=== PATIENT | male | born 1955 | race Caucasian/White ===

== ENCOUNTER → 2018-05-11 10:42 | Outpatient (CLI) | payer OTHER, SELFPAY ==
[2018-05-11 12:26] LABS: Add Manual Diff / Slide Review NO; Alanine Aminotransferase 35 IU/L (21-72); Albumin 4.1 g/dL (3.5-5.0); Albumin Globulin Ratio 1.5 (1.0-2.8); Alkaline Phosphatase 77 U/L (38-126); Aspartate Aminotransferase 33 IU/L (17-59); BUN Creatinine Ratio 21.4 (6-22); Basophils Percent Auto 0.5 % (0-2); Bilirubin Total 0.6 mg/dL (0.2-1.3); Blood Urea Nitrogen 15 mg/dL (9-20); Calcium 9.7 mg/dL (8.4-10.2); Carbon Dioxide 33 mmol/L (22-32); Chloride 100 mmol/L (98-107); Cholesterol 168 mg/dL (140-199); Eosinophils Percent Auto 2.3 % (2-4); Estimated Glomerular Filt Rate > 60.0 mL/min (>60); Globulin 2.7 g/dL (1.7-4.1); Glucose 96 mg/dL (80-110); HDL Cholesterol 84 mg/dL (40-60); HEMOLYSIS < 15 (0-50); Hematocrit 41.1 % (41-53); Hemoglobin 14.3 g/dL (13.5-17.5); LDL Cholesterol Calculated 68 mg/dL (<100); Lymphocytes Percent Auto 17.5 % (25-40); Mean Corpuscular HGB Conc 34.8 % (30-36); Mean Corpuscular Hemoglobin 33.2 PG (26-34); Mean Corpuscular Volume 95.4 fL (80-100); Monocytes Percent Auto 10.1 % (3-14); Neutrophils Absolute Auto 2800 /uL (3000-5900); Neutrophils Percent Auto 69.6 % (50-75); Platelet Count 276 X10^3/uL (150-400); Red Blood Cell Count 4.31 X10^6/uL (4.5-5.9); Red Cell Distribution Width 12.5 % (11.6-14.8); Sodium 139 mmol/L (137-145); Total Protein 6.8 g/dL (6.3-8.2); Triglycerides 79 mg/dL (35-150)
[2018-05-11 15:40] LABS: Hep C Virus Ab w/Reflex Quant NEGATIVE s/c (NEGATIVE)
[2018-05-12 05:10] LABS: Hemoglobin A1C% w Est Avg Glu 5.3 % (4.0-6.0)
== END ==
PROVIDERS: PCP Internal Medicine; Visit Provider Internal Medicine
DX: I10 Essential (primary) hypertension (principal); M15.0 Primary generalized (osteo)arthritis; C43.9 Malignant melanoma of skin, unspecified; R73.01 Impaired fasting glucose
CPT/HCPCS: 36415; 80053; 80061; 83036; 85025; 86803

== ENCOUNTER → 2018-06-28 15:40 | Outpatient (CLI) | payer OTHER, SELFPAY | PROVIDERS: PCP Internal Medicine; Visit Provider Orthopaedic Surgery | DX: Z01.818 Encounter for other preprocedural examination (principal) | CPT/HCPCS: 93005 ==

== ENCOUNTER 2018-07-15 06:10 | Inpatient (IN) | payer OTHER, SELFPAY ==
[2018-06-29 12:41] VITALS: BMI 28.6
[2018-07-15] VITALS (13 sets, daily range): BP systolic 114–145; BP diastolic 67–96; PULSE 59–83; RESP 11–20; TEMP 36.2–36.7; O2SAT 95–99; BMI 28.6
--- NOTE | 2018-07-15 | DI.RAD.S_ITS ---
PROCEDURE: XR HIP W PEL IF DONE RT 2V INDICATIONS: INTEROPERATIVE RIGHT HIP TECHNIQUE: AP pelvis with lateral view(s) of the right hip(s). COMPARISON: [facility], , XR HIP W PEL IF DONE RT 2V, 07/15/2018, 8:47. FINDINGS: Bones: No fractures or dislocations. Expected postoperative appearance status post placement of right hip arthroplasty Pelvic ring appears intact. No suspicious bony lesions. Mild to moderate left hip joint degeneration Soft tissues: Overlying postoperative changes. IMPRESSION: Expected postoperative alignment of right hip arthroplasty Dictated by: Anthony Pineda M.D. on 07/15/2018 at 13:29 Approved by: Anthony Pineda M.D. on 07/15/2018 at 13:30
--- NOTE | 2018-07-15 06:00 | DI.RAD.S_ITS ---
PROCEDURE: XR HIP W PEL IF DONE RT 2V INDICATIONS: prosthesis placement TECHNIQUE: 2 view(s) of the hip acquired. COMPARISON: None. FINDINGS: Bones: Intraoperative image of right hip arthroplasty, with hardware components in expected positions. The hip joint appears congruent. The visualized bony structures appear intact. Soft tissues: Overlying postoperative changes are noted. No suspicious soft tissue densities. IMPRESSION: Expected postsurgical change for right hip arthroplasty. Dictated by: Kaitlynn Valle MD, PhD on 07/15/2018 at 15:21 Approved by: Kaitlynn Valle MD, PhD on 07/15/2018 at 15:22
[2018-07-15] MEDS: LACTATED RINGERS 1,000 ML 42 ML IV (07:00)
[2018-07-15] MEDS: VANCOMYCIN 1,000 MG/200 ML FROZ.PIGGY 200 MG IV (07:07)
[2018-07-15] MEDS: PREGABALIN 75 MG CAPSULE PO (07:10)
[2018-07-15] MEDS: CELECOXIB 200 MG CAPSULE PO (07:10)
[2018-07-15] MEDS: ACETAMINOPHEN 325 MG TABLET 975 MG PO ×3 (07:12→20:20)
[2018-07-15] MEDS: CEFAZOLIN 2 GM/100 ML FROZ.PIGGY IV ×3 (07:50→20:21)
--- NOTE | 2018-07-15 07:53 | PM.PREOP ---
Pre-operative Note Interval Note Pre-op Check: Yes History & Physical Reviewed by Physician and Yes Exam Performed Changes: No
--- NOTE | 2018-07-15 07:59 | P.OP_ITS ---
Operative Date/Time/Diagnoses Date of procedure: 07/15/18 Time of procedure: 08:04 Pre-op diagnosis: right hip OA Post-op diagnosis: same Procedure & Clinicians Procedure: right total hip arthroplasty Same procedure as scheduled: Yes Indications: The patient has had progressively worsening right hip pain with radiographic changes consistent with arthritis. Non-operative management has failed and the patient has requested total hip replacement. The risks, benefits and alternatives to surgery were discussed with the patient prior to proceeding. Risks discussed included, but were not limited to, failure to relieve pain, leg length discrepancy, dislocation, stiffness, infection, nerve damage, deep venous thrombosis, pulmonary embolism, stroke, coma, heart attack, permanent paralysis and , as well as the potential need for eventual revision of the prosthetic. Surgeon: Jessica Anaya Advertising Supervisor: Stefani Santana Anesthesia Type: General and Spinal Operative Notes Findings: severe right hip arthritis good stability Closure Type: primary Specimen(s): none sent Implants & Drains: anaya and nephew R3 56, anthology 6 SO, +0 by 36 Applied: catheter Estimated Blood Loss (mL): 300 Blood products transfused: none Procedure in detail: The patient was brought to the operating room. Patient was carefully positioned in the supine position. Time-out was performed and antibiotics were given. Anesthesia was induced. She was positioned in the on the table in order to allow hyperextension of the hip. Bilateral lower extremities were prepped and draped in a standard sterile fashion. An anterior right hip incision was made 1 fingerbreadth lateral to the anterior superior iliac spine and extended distally towards the greater trochanter. Dissection was carried out through skin and subcutaneous tissues. The skin and subcutaneous tissues were carefully injected with Lidocaine with epi. Superficial hemostasis was achieved. The fascia over the tensor fascia susanne was defined and incised with a knife. Two Allis clamps were used to grasp the fascia. Tensor fascia susanne was retracted laterally. A gelpi retractor was placed. Dissection was carried out down along the neck. The circumflex vessels were carefully identified and cauterized with the Aqua Mantis. There was good visualization of the femoral neck. A Cobra was placed superior to the neck and the gluteus fibers were carefully stripped from that superior aspect of the capsule. A 2nd retractor was placed along the inferior aspect of the neck. The rectus insertion along the capsule was partially released. A 3rd retractor that was then gently placed over the rim of the acetabulum under the rectus. Capsule was carefully incised and released from the intertrochanteric line circumferentially superior to the mid sagittal line and inferiorly to the mid sagittal line until the lesser trochanter was palpable. A tag stitch was placed both in the superior and inferior limb of the capsular insertion. Along the acetabulum capsule was also released up to the mid sagittal 12:00 position. A portion of the labrum was resected. A saw was used to perform an osteotomy at the level of the intertrochanteric line and the junction of the superior femoral neck leaving approximately 1 finger breath of residual inferior neck above the lesser trochanter. A 2nd cut was made along the femoral neck at the base of the head and a napkin ring of neck was removed. Corkscrew was placed in the femoral head and the head was removed without difficulty. Retractors were then repositioned around the acetabulum. Residual labrum was resected and additional osteophytes were removed. A reamer that was 4 mm below the templated size was placed by hand in the acetabulum and it was reamed to centralize the acetabulum. It was then reamed up to 2 under the templated size and fluoroscopy was brought in to confirm the position of the reaming and depth of reaming. I reamed 1 under the anticipated size and touched the rim with line to line reaming. A trial cup was placed and noted that it was appropriately sized and fluoroscopy confirmed position and depth. The component was open and inserted without difficulty fluoroscopic imaging was used to confirm that the cup had been adequately seated and was well positioned. Neutral poly trial liner was placed. The cup was tested and noted to be stable. Attention was then directed to the femur. The femur was gently hyperextended additional capsular release was performed as needed in order to allow adequate visualization of the proximal femur with elevation of the femur. Patient was placed in a hyperextended slightly abducted position with maximum external rotation. Box osteotome was used to check for any residual neck as well as sclerotic bone along the trochanter. [place] pepper was placed in the femur. Additional broaching was performed. Canal finder was used to determine the alignment of the canal and position. Size 1 broach was placed. The canal was then appropriately broached up to the templated size as long as there was adequate stability of the broach and serial advancement of the broach without excessive impingement. Specific attention was directed at avoiding varus attempting to direct the distal aspect of the broach more anteriorly and avoiding excessive anteversion. Trial reduction showed acceptable range of motion, good stability, no posterior impingement, sikhism of leg length and appropriate lateral shuck. I also hyperflexed the hip and checked that there was no impingement anteriorly and there was good stability with flexion, abduction and internal rotation. Final neutral poly was placed without difficulty. Marcaine and Exparel were injected. The stem was placed without difficulty. Repeat trial reduction and x -ray showed acceptable overall position, length, and no evidence of the femoral fracture. Final head was placed. Wound was meticulously irrigated with normal saline. The hip was reduced and additional Exparel and Marcaine were injected. The capsule was closed with interrupted nonabsorbable sutures. The fascia of the tensor was closed with interrupted and running Vicryl. No drain was placed. Any tensor fascia susanne muscle that appeared to be contused or injured which was a minimal amount was carefully resected. Capsule around the tensor was injected with Exparel and Marcaine. The skin was closed with barbed stitches for the subcutaneous tissue and skin. We also used surgical glue. The wound was dressed sterilely. Brief Betadine soak was also used and was meticulously irrigated with normal saline. Patient was transferred to recovery room in satisfactory condition. Complications: none Condition: stable Disposition: Acute Care Plan for aftercare: The patient will be maintained on a standard total hip replacement protocol with weight bearing as tolerated and anterior hip precautions. The patient will receive Aspirin and sequential compression devices for DVT prophylaxis. The patient will be discharged home when safe for the home environment.
[2018-07-15] MEDS: LIDOCAINE 1% W/EPI INJ 20 ML INJ (08:30)
--- NOTE | 2018-07-15 08:50 | SUR.OPER ---
Supine, head on pillow, torso on pink pad positioner. Iliac crest at flex of foot end of table. Gel roll under operative hip. Both arms secured on arm boards <90 degrees abduction.
[2018-07-15] MEDS: BUPIVACAINE 0.25% W/ EPI VIAL 50 ML INJ (09:02)
[2018-07-15] MEDS: BUPIVACAINE LIPOSOME 266 MG/20 ML VIAL INJ (09:03)
[2018-07-15] MEDS: LACTATED RINGERS 1,000 ML 125 ML IV (14:27)
--- NOTE | 2018-07-15 14:42 | PC.NURSE ---
Pt to floor after anterior right hip replacement on mckeon path. Denies pain at this time. Aquacel dressing CDI. Has not yet voided. Given urinal to use when able. Spouse present. O2 sats at 96% on RA.
--- NOTE | 2018-07-15 16:27 | PT.IIE ---
Current Diagnoses Unilateral primary osteoarthritis, right hip (07/15/18) Trochanteric bursitis, right hip (07/15/18) Surgery Performed Operation Date: 07/15/18 07:45 Actual Procedures p Total Hip Arthroplasty/Anterior Approach(Right) - Jessica Tenorio MD Surgical History (Last Updated 06/29/18 @ 13:18 by Estee Aponte, RN) H/O vasectomy (Acute) History of lumpectomy of left breast (Acute) Hx of meniscectomy of right knee (Acute) S/P tonsillectomy and adenoidectomy (Acute) Medical History (Last Updated 06/29/18 @ 13:18 by Estee Aponte RN) Aspiration pneumonia (Acute) GERD (gastroesophageal reflux disease) (Acute) NULATO (hard of hearing) (Acute) HTN (hypertension) (Acute) Hiatal hernia (Acute) Hypercholesterolemia (Acute) Melanoma (Acute) Osteoarthritis (Acute) Seasonal allergies (Acute) TIA (transient ischemic attack) (Acute) Physical Therapy Inpatient Evaluation/Re-Eval M1 PT/OT-IP Prior Functional Status Start: 07/15/18 17:11 Freq: NEEDED Status: Active Protocol: Document 07/15/18 16:27 DLM (Rec: 07/15/18 17:23 DLM [id number]) Medical Review Prior Functional Status Medical History Reviewed Yes Diet/Fluid Consistency Regular Communication WNL Mobility and Gait Independent without device, hip pain was making him limp and lean on furniture Activities of Daily Living and IADL's Independent Prior Functional Level (Other details) drives Social History Household Members spouse Living Arrangements House Number of Floors (Floors) One Floor Number of Stairs To Enter/Railing? 0 CHRISTIANO, has one step down into bedroom Home Equipment Front Wheel Walker Raised Toilet Seat w/Armrests Shower Seat without Backrest Additional Social History Comment has borrowed equipment from a friend who had hip surgery, attended out-pt PT before sx, his Son is a physical therapist M2 PT-IP Current Condition Start: 07/15/18 17:11 Freq: NEEDED Status: Active Protocol: Document 07/15/18 16:27 DLM (Rec: 07/15/18 17:23 DLM [id number]) Physical Therapy Current Condition Current Condition Evaluation Date 07/15/18 Treatment Diagnosis right TESSY, anterior approach, impaired gait Onset Date 07/15/18 Precautions Anterior Hip Precautions No Hip Extension No Hip External Rotation Weight Bearing Status Weight Bearing Status Weight Bear as Tolerated M3 PT-IP Subjective Start: 07/15/18 17:11 Freq: NEEDED Status: Active Protocol: Document 07/15/18 16:27 DLM (Rec: 07/15/18 17:23 DL [id number]) Subjective Physical Therapy Visit Type Type Initial Evaluation Visit Start Time 15:50 Visit Stop Time 16:27 Total Visit Minutes 37 Number of GIMP TACKER Visits 0 Physical Therapy Visit Comments Patient Comments He is ready to get up. They have to catch a ferry to get home tomorrow. His will be able to help him at home as needed. Patient Goals discharge home tomorrow Therapy Pain Assessment Pain When Pain Assessed At Rest Pain Present Pain Present Pain Reported Location Right Hip Intensity 2 Scale Used Numeric (1 - 10) Description Aching Pain Management Techniques Apply Cold M4 PT-IP Mobility and Gait Start: 07/15/18 17:11 Freq: NEEDED Status: Active Protocol: Document 07/15/18 16:27 DLM (Rec: 07/15/18 17:23 DL [id number]) PT-Bed Mobility Assessment Supine to Sit Supine to Sit Standby Assistance Head of Bed Elevated Scooting Scooting to Edge of Bed Standby Assistance PT-Transfer Assessment Sit to and From Stand Sit to and from Stand Standby Assistance Equipment Transfer Assistive Device Gait Belt Front Wheeled Walker Transfers Transfer Destination Chair Transfer Technique Stand Step Pivot Transfer Ability Level of Assist Contact Guard Assistance Use of Upper Extremities Gait Assessment Gait Gait Assistance Required: Contact Guard Assist Distance (Feet) 180 Able to Maintain Weight Bearing Status Yes During Gait Assistive Devices Assistive Device Gait Belt Front Wheeled Walker Gait Deviations General Gait Pattern Antalgic Flexed Trunk Factors Limiting Gait Function Factors Limiting Gait Function Decreased Strength Pain PT-Balance Assessment Sitting Balance and Reactions Static Sitting Balance Ability Normal Dynamic Sitting Balance Ability Normal Standing Balance and Reactions Static Standing Balance Ability Good Dynamic Standing Balance Ability Good Device Used FWW M5 PT-IP Objective Assessments Start: 07/15/18 17:11 Freq: NEEDED Status: Active Protocol: Document 07/15/18 16:27 DLM (Rec: 07/15/18 17:23 DL [id number]) Orientation Orientation/Cognition Level of Alertness Alert Orientation Name Age Birthday Month Date Year Day of Week Place Situation Language Function Ability No Deficits Noted Safety Awareness Understands Safety Issues Memory Description No Deficits Noted Gross Range of Motion Upper Extremity ROM Assessment Within Functional Limits Lower Extremity ROM Assessment Right Impaired Impairments hip precautions post-op on right Strength Upper Extremity Strength Assessment Within Functional Limits Lower Extremity Strength Assessment Right Impaired Comments Strength Comments weakness and pain right LE post-op, moving LE actively, difficulty lifting LE off bed to move functionally Coordination Assessment Gross Coordination Gross Coordination WNL Sensation Assessment Sensation Gross Sensation WNL Muscle Tone Muscle Tone WNL Yes M6 PT-IP Treatment Start: 07/15/18 17:11 Freq: NEEDED Status: Active Protocol: Document 07/15/18 16:27 DLM (Rec: 07/15/18 17:23 DLM [id number]) Physical Therapy Treatment Exercises Exercises Ankle Pumps Gluteal Sets Education Education Provided Precautions Weight Bearing Status Post-Op Packet Safety Other Treatments Other Treatment Performed his participate in all education and training this visit M7 PT-IP Assessment and Plan Start: 07/15/18 17:11 Freq: NEEDED Status: Active Protocol: Document 07/15/18 16:27 DLM (Rec: 07/15/18 17:23 DLM [id number]) PT Summary Assessment and Plan Potential Rehabilitation Potential Excellent Status of Condition at Evaluation Evolving Summary Impairments Pain ROM Strength Balance Bed Mobility Transfers Gait Activity Tolerance Assessment Summary He tolerated activity well this visit on day of surgery. Noted he feels hot and sweaty but he has no complaints. Pt ambulated in the peacock and sat up in recliner. His is present and very supportive. The are motivated to discharge tomorrow. He attempted to urinate this visit but was unable even in standing. Nursing is aware. Will plan for discharge home with his to assist if he continues to progress well. Goals Bed Mobility Goal Independent Transfer Goal Independent Front Wheeled Walker Gait Goal Independent Front Wheel Walker Gait Distance 200 ft Other Goals up and down one step/curb with fWW and SBA Days to Meet Goals 2 Frequency of Treatment Frequency Of Treatment Twice a Day Treatment Plan Physical Therapy Treatment Plan Bed Mobility Training Transfer Training Gait Training Therapeutic Exercise Balance Retraining Post Op Education Discharge Planning Hot or Cold Pack Other Recommendations and Next Treatment prepare for possible discharge Focus tomorrow morning Recommendations To Nursing Amount of Assist Needed 1 Person Assist Discharge Recommendations PT Discharge Recommendations Home with Assistance Outpatient PT
[2018-07-15] MEDS: SODIUM CHLORIDE 0.9% 1,000 ML 100 ML IV (16:46)
[2018-07-15] MEDS: LOVASTATIN 20 MG TABLET PO (16:46)
[2018-07-15] MEDS: INFLUENZA VACCINE 0.5 ML SYRINGE IM (16:47)
--- NOTE | 2018-07-15 19:48 | PC.NURSE ---
SHIFT NOTE Ox3, pleasant and cooperative. R hip aquacel dressing CDI. some numbness to buttock area but otherwise distal CMS intact. 1P mins assist and FWW for ambulation. pt with trouble getting urination to start, MD and anesthesiologist aware and states due to recent epidural. pt very reluctant to have straight cath done, wanting to attempt to urinate on his own but remained unsuccessful. obtained 800ml of urine via stright cath at 1845. c/o itching to back area, no rash noted. denies pain, nausea, or vomiting.
[2018-07-15] MEDS: ASPIRIN EC 81 MG TABLET PO (20:19)
[2018-07-15] MEDS: diphenhydrAMINE 50 MG/ML VIAL 25 MG IV (20:23)
[2018-07-16 00:10] VITALS: BP 113/72; PULSE 64; RESP 16; TEMP 36.7; O2SAT 98
[2018-07-16] MEDS: SODIUM CHLORIDE 0.9% 1,000 ML 100 ML IV (03:49)
[2018-07-16] MEDS: CEFAZOLIN 2 GM/100 ML FROZ.PIGGY IV (03:49)
[2018-07-16 05:03] VITALS: BP 118/71; PULSE 60; RESP 16; TEMP 36.7; O2SAT 99
[2018-07-16 05:10] LABS: Hematocrit 32.9 % (41-53); Hemoglobin 11.5 g/dL (13.5-17.5)
--- NOTE | 2018-07-16 08:07 | P.DS_ITS ---
History of Present Illness Date Patient Seen: 07/16/18 Time Patient Seen: 08:07 Chief complaint: total hip arthroplasty [id number] Narrative: Patient admitted for right total hip arthroplasty anterior approach with Dr. Tenorio Discharge Providers Date of admission: 07/15/18 06:10 Primary care physician: Alvarez Deleon MD Consults: 07/15/18 13:38 Consult to Discharge Planning Routine Comment: Consult to Physical Therapy Evaluate & Treat Comment: Physician Instructions: post op TESSY protocol Consult to Respiratory Therapy Evaluate & Treat Comment: Physician Instructions: Evaluate and treat 07/15/18 14:20 Consult to Photogravure Press Operator Routine Comment: 07/15/18 15:30 Consult to Respiratory Therapy Evaluate & Treat Comment: Physician Instructions: Evaluate and treat Discharge provider: Scarlett Ramirez PA-C Discharge Date: 07/16/18 Summary Discharge Diagnosis: s/p total hip arthroplasty Hospital Course: Patient was admitted for right total hip arthroplasty with Dr. Tenorio, and he consented to procedure. Hospital course was unremarkable. On postop day 1. Patient was feeling well and ready to go home. Patient had been up with physical therapy and has outpatient PT scheduled at [facility]. He was eating and voiding without difficulty or assistance. Pain was well controlled. He has his medications at home already. Status at Discharge Functional status at discharge: uses cane/walker Exam Vital Signs (past 8 hours): - 07/16/18 00:10 07/16/18 05:03 Temperature 98.0 F 98.1 F Pulse Rate 64 60 Respiratory Rate 16 16 Blood Pressure 113/72 118/71 Pulse Oximetry 98 99 Oxygen Delivery Method Room Air Oxygen Flow Rate 0 Narrative Exam Narrative: Patient sitting in bedside chair in no acute distress. He is alert and oriented x3. Dressing on right hip is CDI. Calves are soft, compressible, nontender bilaterally. He is able to actively dorsiflex and plantar flex. Pain is well controlled. Denies chest pain or shortness of breath. Objective Labs Result Diagrams: 07/16/18 04:49 Labs: Laboratory Results - last 24 hr 07/16/18 04:49 Hgb 11.5 L Hct 32.9 L Discharge Plan Discharge Plan Patient Disposition: Home Discharge comment: DC home today after AM PT Discharge Med Rec/Prescriptions Prescriptions: New acetaminophen 325 mg Tablet 975 mg PO TID Qty: 14 RF: 0 oxycodone 5 mg Tablet 5 mg PO Q4HR Qty: 10 RF: 0 Continue celecoxib [Celebrex] 200 mg Capsule 200 mg PO DAILY RF: 0 ibuprofen 200 mg Capsule 200 mg PO DAILY PRN (Reason: pain) RF: 0 amlodipine 10 mg Tablet 10 mg PO DAILY RF: 0 pantoprazole 40 mg Tablet,Delayed Release (Dr/Ec) 40 mg PO DAILY RF: 0 hydrochlorothiazide 25 mg Tablet 25 mg PO DAILY RF: 0 lovastatin 20 mg Tablet 20 mg PO QPM RF: 0 Changed aspirin 81 mg Tablet,Delayed Release (Dr/Ec) 81 mg PO BID Qty: 0 RF: 0 Follow up/Referrals: Alvarez Deleon MD [Primary Care Provider] - (please follow up with dr deleon [phone] ) Jessica Tenorio MD [Physician] - (follow up in 5-7 days ) Provider Discharge Instructions Diet: Diet as Tolerated Activity: Anterior hip precautions Cold/Heat Therapy: as needed Skin/Wound/Dressing Care Dressing: Keep in place for 10-14 days Visit Report/Discharge Packet Instructions: DI for Hip Replacement Visit Report Forms: Stroke Signs & Symptoms Discharge Data Primary Care Provider: Alvarez Deleon Attending Provider: Jessica Tenorio Admit Date/Time: 07/15/18 06:10
[2018-07-16 08:15] VITALS: BP 118/69; PULSE 66; RESP 18; TEMP 36.7; O2SAT 100
--- NOTE | 2018-07-16 09:43 | PT.IPTN ---
Current Diagnoses Unilateral primary osteoarthritis, right hip (07/15/18) Trochanteric bursitis, right hip (07/15/18) Surgery Performed Operation Date: 07/15/18 07:45 Actual Procedures p Total Hip Arthroplasty/Anterior Approach(Right) - Jessica Tenorio MD Physical Therapy Treatment Note M2 PT-IP Current Condition Start: 07/15/18 17:11 Freq: NEEDED Status: Discharge Protocol: Document 07/15/18 16:27 DLM (Rec: 07/15/18 17:23 DLM [id number]) Physical Therapy Current Condition Current Condition Evaluation Date 07/15/18 Treatment Diagnosis right TESSY, anterior approach, impaired gait Onset Date 07/15/18 Precautions Anterior Hip Precautions No Hip Extension No Hip External Rotation Weight Bearing Status Weight Bearing Status Weight Bear as Tolerated M3 PT-IP Subjective Start: 07/15/18 17:11 Freq: NEEDED Status: Discharge Protocol: Document 07/16/18 09:43 DLM (Rec: 07/16/18 12:35 DLM [id number]) Subjective Physical Therapy Visit Type Type Treatment Note Visit Start Time 09:00 Visit Stop Time 09:43 Total Visit Minutes 43 Number of BRUSH OPERATOR Visits 0 Physical Therapy Visit Comments Patient Comments He feels like he can go home today Patient Goals discharge home with his Therapy Pain Assessment Pain When Pain Assessed At Rest Pain Present Pain Present Pain Reported Location Right Hip Intensity 2 Scale Used Numeric (1 - 10) Description Aching Pain Management Techniques Apply Cold Re-positioning M4 PT-IP Mobility and Gait Start: 07/15/18 17:11 Freq: NEEDED Status: Discharge Protocol: Document 07/16/18 09:43 DLM (Rec: 07/16/18 12:35 DLM [id number]) PT-Bed Mobility Assessment Supine to Sit Supine to Sit Standby Assistance Sit to Supine Sit to Supine Standby Assistance Scooting Scooting to Edge of Bed Independent PT-Transfer Assessment Sit to and From Stand Sit to and from Stand Standby Assistance Equipment Transfer Assistive Device Front Wheeled Walker Transfers Transfer Destination Chair Transfer Technique Stand Step Pivot Transfer Ability Level of Assist Standby Assistance Use of Upper Extremities Comments Mobility Comments verbal cues for technique and how to manage his pain and limited right hip ROM Gait Assessment Gait Gait Assistance Required: Standby Assistance Distance (Feet) 250 Able to Maintain Weight Bearing Status Yes During Gait Assistive Devices Assistive Device Front Wheeled Walker Gait Deviations General Gait Pattern Antalgic Factors Limiting Gait Function Factors Limiting Gait Function Decreased Activity Tolerance Decreased Strength Pain Stair Climbing Assessment Evaluation Level of Assist On Stairs Standby Assistance Devices Stair Climbing Assistive Devices Front Wheel Walker Technique/Endurance Stair Climbing Direction Ascend and Descend Stair Climbing Technique Step to Step Number of Steps Climbed 1 Query Text: Stair Climbing Set # Repetitions (reps) 2 Comments Stair Climbing Comments curb step used to simulate his one step at home M5 PT-IP Objective Assessments Start: 07/15/18 17:11 Freq: NEEDED Status: Discharge Protocol: Document 07/15/18 16:27 DLM (Rec: 07/15/18 17:23 DLM [id number]) Orientation Orientation/Cognition Level of Alertness Alert Orientation Name Age Birthday Month Date Year Day of Week Place Situation Language Function Ability No Deficits Noted Safety Awareness Understands Safety Issues Memory Description No Deficits Noted Gross Range of Motion Upper Extremity ROM Assessment Within Functional Limits Lower Extremity ROM Assessment Right Impaired Impairments hip precautions post-op on right Strength Upper Extremity Strength Assessment Within Functional Limits Lower Extremity Strength Assessment Right Impaired Comments Strength Comments weakness and pain right LE post-op, moving LE actively, difficulty lifting LE off bed to move functionally Coordination Assessment Gross Coordination Gross Coordination WNL Sensation Assessment Sensation Gross Sensation WNL Muscle Tone Muscle Tone WNL Yes M6 PT-IP Treatment Start: 07/15/18 17:11 Freq: NEEDED Status: Discharge Protocol: Document 07/16/18 09:43 DLM (Rec: 07/16/18 12:35 DL [id number]) Physical Therapy Treatment Exercises Exercises Ankle Pumps Gluteal Sets Quad Sets Heel Slides Education Education Provided Precautions Weight Bearing Status Post-Op Packet Safety Other Treatments Other Treatment Performed His participated in treatment session and was included in education M7 PT-IP Assessment and Plan Start: 07/15/18 17:11 Freq: NEEDED Status: Discharge Protocol: Document 07/16/18 09:43 DLM (Rec: 07/16/18 12:35 DL [id number]) PT Summary Assessment and Plan Summary Progress Towards Goals Progressing Toward Goals Safe For Discharge Assessment Summary He is progressing well. His is able to assist him at home. He is eager to discharge home today. He appears safe to discharge home with assist from his . Frequency of Treatment Frequency Of Treatment Discharge Recommendations To Nursing Amount of Assist Needed Standby Assistance Discharge Recommendations PT Discharge Recommendations Home with Assistance Outpatient PT
[2018-07-16] MEDS: ACETAMINOPHEN 325 MG TABLET 975 MG PO (10:02)
[2018-07-16] MEDS: DOCUSATE 100 MG CAPSULE PO (10:03)
[2018-07-16] MEDS: IBUPROFEN 600 MG TABLET PO (10:03)
[2018-07-16] MEDS: PANTOPRAZOLE 40 MG TABLET PO (10:03)
[2018-07-16] MEDS: CELECOXIB 200 MG CAPSULE PO (10:03)
[2018-07-16] MEDS: ASPIRIN EC 81 MG TABLET PO (10:03)
[2018-07-16] MEDS: AMLODIPINE 5 MG TABLET 10 MG PO (10:03)
[2018-07-16] MEDS: hydroCHLOROthiazide 25 MG TABLET PO (10:03)
--- NOTE | 2018-07-16 10:32 | PC.NURSE ---
Discharge Pt up moving around this AM with FWW and SBA from . following anterior hip precautions with minimal cueing. medicated with scheduled tylenol and celebrex. also provided with PRN ibuprofen for the ferry ride home. d/c instructions provided to pt and . notified to f/u with MD for scheduled apt as well as for any questions or concerns. pt left with all his belongings including his FWW. pt taken down to ER entrance to wait for taxi to take them to the ferry.
== END 2018-07-16 10:20 | disposition home or self-care (01) | DRG 470 ==
PROVIDERS: Admitting Provider Orthopaedic Surgery; Family Provider Internal Medicine Medical Oncology; PCP Internal Medicine; Visit Provider Orthopaedic Surgery
PROC: 0SR902Z Replacement of Right Hip Joint with Metal on Polyethylene Synthetic Substitute, Open Approach (ICD-10-PCS; CPT 27130; principal; 2018-07-15 07:45)
DX: M16.11 Unilateral primary osteoarthritis, right hip (principal); I10 Essential (primary) hypertension; Z87.891 Personal history of nicotine dependence; K21.9 Gastro-esophageal reflux disease without esophagitis
CPT/HCPCS: 36415; 73502; 76001; 85014; 85018; 90471; 90656; 97110; 97116; 97162; 97530; C1776; C9290; J0690; J1200; J2250; J2274; J3010; J3370; Q2038

== ENCOUNTER → 2020-03-29 07:02 | Outpatient (CLI) | payer MEDICARE, OTHER, SELFPAY ==
[2018-07-15 13:57] VITALS: BMI 28.6
[2020-03-29 08:45] LABS: Cholesterol 162 mg/dL (140-199); HDL Cholesterol 65 mg/dL (40-60); LDL Cholesterol Calculated 69 mg/dL (<100); Triglycerides 138 mg/dL (35-150)
== END ==
PROVIDERS: Family Provider Internal Medicine Medical Oncology; PCP Internal Medicine; Referring Provider Internal Medicine; Visit Provider Internal Medicine
DX: E78.5 Hyperlipidemia, unspecified (principal)
CPT/HCPCS: 36415; 80061

== ENCOUNTER → 2020-06-13 16:17 | Outpatient (CLI) | payer MEDICARE, OTHER, SELFPAY ==
[2020-05-18 14:03] VITALS: BMI 28.6
[2020-06-13 18:22] LABS: Prostate Specific Antigen Scrn 0.549 ng/mL (0.1-4.0)
== END ==
PROVIDERS: Family Provider Internal Medicine Medical Oncology; PCP Student in an Organized Health Care Education/Training Program; Referring Provider Student in an Organized Health Care Education/Training Program; Visit Provider Student in an Organized Health Care Education/Training Program
DX: Z12.5 Encounter for screening for malignant neoplasm of prostate (principal)
CPT/HCPCS: 36415; G0103

== ENCOUNTER → 2021-07-05 09:13 | Outpatient (CLI) | payer MEDICARE, OTHER, SELFPAY ==
[2020-05-18 14:03] VITALS: BMI 28.6
--- NOTE | 2021-07-05 | DI.NM.S_ITS ---
PROCEDURE: NM BONE SCAN WHOLE BODY RADIOPHARMACEUTICAL: 21.9 mCi Tc-99m MDP IV. INDICATIONS: Mechanical loosening of internal right hip prosthetic joint, TECHNIQUE: Delayed whole-body scintigrams were obtained approximately 3-4 hours after intravenous injection of radiotracer. Anterior and posterior views were acquired from vertex to feet. Additional left and right oblique views of the pelvis were obtained. COMPARISON: [facility], CR, XR HIP W PEL IF DONE RT 2V, 07/15/2018, 8:47. [facility], CR, XR HIP W PEL IF DONE RT 2V, 07/15/2018, 13:01. [facility] [place], CR, XR PELVIS WITH LATERAL HIP RIGHT, 07/27/2019, 15:13. [facility] [place], CR, XR PELVIS WITH LATERAL HIP RIGHT, 06/26/2021, 14:17. FINDINGS: There is right hip total arthroplasty. There is increased uptake along the right acetabulum. The prosthetic femoral stem appears normal. The comparison radiograph demonstrates expected postsurgical changes related to hip arthroplasty. A whole body bone scan was obtained. No lesions are identified in skull, sternum, clavicles, scapulae, ribs, bony pelvis, and visualized shafts of the long bones. There is low level increased uptake in cervical, thoracic and lumbar spine with distribution indistinguishable from degenerative disc and facet disease; early metastasis to spine could be obscured by degenerative changes. There are foci of increased periarticular activity involving shoulders, wrists, hands, left hip, SI joints, knees and feet, compatible with degenerative/arthritic changes. IMPRESSION: 1. Right hip arthroplasty. There is increased uptake involving acetabulum. The comparison x-ray of the hip demonstrates stable postsurgical changes since 2018. Recommend clinical correlation for early prosthesis loosening. 2. Degenerative/arthritic changes as described. Dictated by: Markos Marino M.D. on 07/05/2021 at 14:46 Approved by: Markos Marino M.D. on 07/05/2021 at 14:55
== END ==
PROVIDERS: Family Provider Internal Medicine Medical Oncology; PCP Student in an Organized Health Care Education/Training Program; Referring Provider Orthopaedic Surgery; Visit Provider Orthopaedic Surgery
DX: T84.030S Mechanical loosening of internal right hip prosthetic joint, sequela (principal)
CPT/HCPCS: 78306; A9503

== ENCOUNTER → 2021-07-18 09:30 | Outpatient (CLI) | payer MEDICARE, OTHER, SELFPAY ==
[2020-05-18 14:03] VITALS: BMI 28.6
--- NOTE | 2021-07-18 | DI.US.S_ITS ---
PROCEDURE: US ABD AORTA ANEURYSM SCREEN INDICATIONS: HX SMOKING TECHNIQUE: Real time scanning was performed of the aorta and iliac arteries, with image documentation. COMPARISON: [facility] Outside Film, CT, CT CHEST ABDOMEN PELVIS WITH CONTRAST, 07/18/2019, 12:45. FINDINGS: Aorta: Proximal aorta is not seen. Mid-aorta measures 2.2 cm. Distal aortic diameter is 1.8 cm. Iliac arteries: Right common iliac artery measures 1.1 cm. Left common iliac artery measures 1.1 cm. IMPRESSION: Negative for aneurysm. Dictated by: Bhnau Bean M.D. on 07/18/2021 at 9:59 Approved by: Bhanu Bean M.D. on 07/18/2021 at 10:00
== END ==
PROVIDERS: Family Provider Internal Medicine Medical Oncology; PCP Student in an Organized Health Care Education/Training Program; Referring Provider Student in an Organized Health Care Education/Training Program; Visit Provider Student in an Organized Health Care Education/Training Program
DX: Z87.891 Personal history of nicotine dependence (principal)
CPT/HCPCS: 76706

== ENCOUNTER → 2021-09-19 09:37 | Outpatient (CLI) | payer MEDICARE, OTHER, SELFPAY ==
[2020-05-18 14:03] VITALS: BMI 28.6
[2021-09-19 10:49] LABS: Add Manual Diff / Slide Review NO; Basophils Absolute Auto 0 /uL (0-100); Basophils Percent Auto 0.8 % (0-2); Eosinophils Absolute Auto 100 /uL (0-450); Hematocrit 35.6 % (41-53); Hemoglobin 11.5 g/dL (13.5-17.5); Lymphocytes Absolute Auto 700 /uL (1100-4500); Lymphocytes Percent Auto 11.8 % (25-40); Mean Corpuscular HGB Conc 32.4 % (30-36); Mean Corpuscular Hemoglobin 27.3 PG (26-34); Mean Corpuscular Volume 84.3 fL (80-100); Monocytes Absolute Auto 500 /uL (0-900); Monocytes Percent Auto 8.8 % (3-14); Neutrophils Absolute Auto 4500 /uL (1500-7000); Neutrophils Percent Auto 77.6 % (50-75); Platelet Count 365 X10^3/uL (150-400); Red Blood Cell Count 4.23 X10^6/uL (4.5-5.9); Red Cell Distribution Width 16.1 % (11.6-14.8); White Blood Cell Count 5.9 X10^3/uL (4.5-11.0)
[2021-09-19 11:10] LABS: C-Reactive Protein Quant 1.9 mg/dL (<1.0)
[2021-09-19 11:18] LABS: Erythrocyte Sedimentation Rate 48 MM/HR (0-15)
== END ==
PROVIDERS: Family Provider Internal Medicine Medical Oncology; PCP Student in an Organized Health Care Education/Training Program; Referring Provider Orthopaedic Surgery; Visit Provider Orthopaedic Surgery
DX: M25.551 Pain in right hip (principal); M16.11 Unilateral primary osteoarthritis, right hip; M70.61 Trochanteric bursitis, right hip; Z96.641 Presence of right artificial hip joint
CPT/HCPCS: 36415; 85025; 85651; 86140

== ENCOUNTER → 2022-07-15 09:16 | Outpatient (CLI) | payer MEDICARE, OTHER, SELFPAY ==
[2020-05-18 14:03] VITALS: BMI 28.6
--- NOTE | 2022-07-15 09:18 | DI.US.S_ITS ---
PROCEDURE: US ABDOMEN COMPLETE INDICATIONS: ABNORMAL LEVELS OF SERUM ENZYMES TECHNIQUE: Real-time scanning was performed of the abdominal and retroperitoneal organs, with image documentation. COMPARISON: [facility], US, US ABD AORTA ANEURYSM SCREEN, 07/18/2021, 9:39. [facility] Outside Film, CT, CT CHEST ABDOMEN PELVIS WITH CONTRAST, 07/18/2019, 12:45. FINDINGS: Liver: The liver demonstrates normal size. The liver demonstrates generalized moderately increased echogenicity. This decreases ultrasound sensitivity for detection of hepatic masses. Multiple (approximately 5) anechoic cysts are seen, with the largest on the left measuring 5 cm. The main portal vein demonstrates normal size and demonstrates normal appearing, hepatopetal flow. Gallbladder: No findings of gallstones or sludge are seen. The gallbladder wall is not thickened, measuring 3 mm or less. No specific pericholecystic fluid is seen. The sonographic Russell sign is negative. Biliary ducts: Intrahepatic bile ducts are non-dilated. Extrahepatic bile duct caliber measures 6.8 mm. Normal is 6-7 mm or less in diameter, or 10 mm or less post-cholecystectomy. Pancreas: Pancreas is not well seen. Spleen: Spleen is normal in size and homogeneous in echotexture. Kidneys: Kidneys are normal in size and echotexture. Right kidney measures 12 cm long; left kidney measures 12.9 cm long. No hydronephrosis or nephrolithiasis. No solid masses. The left kidney demonstrates a lobular appearance. Minimal prominence of the perinephric fat can be seen on both sides. Aorta: Visualized aorta is normal in caliber at less than 3 cm. Iliacs: Proximal common iliac arteries are normal in caliber at less than 2.5 cm. IVC: Not well seen. Miscellaneous: No free abdominal fluid. Overall scan quality is limited, secondary to bowel gas. IMPRESSION: The liver demonstrates increased echogenicity. This finding is nonspecific, yet it is most commonly attributed to fatty infiltration. Numerous simple appearing liver cysts are noted. Dictated by: Bhanu Bean M.D. on 07/16/2022 at 9:40 Approved by: Bhanu Bean M.D. on 07/16/2022 at 9:42
== END ==
PROVIDERS: PCP Student in an Organized Health Care Education/Training Program; Referring Provider Family Medicine; Visit Provider Family Medicine
DX: R74.8 Abnormal levels of other serum enzymes (principal); K76.89 Other specified diseases of liver
CPT/HCPCS: 76700

== ENCOUNTER → 2022-09-15 11:49 | Outpatient (CLI) | payer MEDICARE, OTHER, SELFPAY ==
[2020-05-18 14:03] VITALS: BMI 28.6
[2022-09-15 13:17] LABS: COVID19 -Nasal RAPID Negative (Negative)
== END ==
PROVIDERS: PCP Student in an Organized Health Care Education/Training Program; Visit Provider Surgery
DX: Z20.822 Contact with and (suspected) exposure to COVID-19 (principal); Z01.812 Encounter for preprocedural laboratory examination
CPT/HCPCS: 87635; C9803

== ENCOUNTER 2022-09-16 11:41 | Day surgery (SDC) | payer MEDICARE, OTHER, SELFPAY ==
[2020-05-18 14:03] VITALS: BMI 28.6
--- NOTE | 2022-09-16 | PATH_ITS ---
[facility] Accession Number: [id number] . 01 Material submitted: . PART A: colon - ASCENDING COLON POLYP. Modifiers: ascending PART B: colon - TRANSVERSE COLON POLYP. Modifiers: transverse . 01 Diagnosis: A. Ascending Colon, Polyp, Biopsy: Colonic mucosa with no diagnostic abnormality, consistent with polypoid redundancy. Additional levels were examined. Negative for dysplasia and malignancy. . B. Transverse Colon, Polyp, Biopsy: Colonic mucosa with no diagnostic abnormality, consistent with polypoid redundancy. Additional levels were examined. Negative for dysplasia and malignancy. MRV 09/19/2022 1318 Local . 01 Electronically signed: . Sadaf Bustamante MD, Pathologist NPI- [id number] . 01 Gross description: . Part A: ASCENDING COLON POLYP: Received in formalin is 1 fragment(s) of dash, soft tissue measuring 0.5 x 0.2 x 0.1 cm submitted entirely in 1 cassette(s) Part B: TRANSVERSE COLON POLYP: Received in formalin is 1 fragment(s) of dash, soft tissue measuring 0.2 x 0.2 x 0.1 cm submitted entirely in 1 cassette(s) /CPE 09/17/2022 1140 Local . 01 Pathologist provided ICD-10: K63.5 . 01 CPT . 817088, 564645 Specimen Comment: A courtesy copy of this report has been sent to [phone] Performed at: [facility] [address] [place] [id number] MD Al Mcdermott MD Phone: [phone]
[2022-09-16 12:02] VITALS: BP 156/92; PULSE 70; RESP 16; TEMP 36.4; O2SAT 98; BMI 28.1
[2022-09-16] MEDS: LACTATED RINGERS 1,000 ML 200 ML IV (12:21)
--- NOTE | 2022-09-16 12:27 | PM.HP.1 ---
History of Present Illness History of Present Illness Date Patient Seen: 09/16/22 Time Patient Seen: 12:27 Chief complaint: SDC Narrative: The patient presents for colorectal screening. Last colonoscopy 5 years ago normal. Family history significant for father with colon cancer. On further history denies any recent gastrointestinal symptoms. No nausea, vomiting, abdominal pain, loss of appetite, unexplained weight loss, change in bowel habits, diarrhea, constipation, melena, hematochezia, or bright red blood per rectum. Patient History Medical History (Updated 09/16/22 @ 12:28 by Washington Gordon MD) Aspiration pneumonia Morrison syndrome GERD (gastroesophageal reflux disease) Hiatal hernia [place] (hard of hearing) HTN (hypertension) Hypercholesterolemia Melanoma Osteoarthritis Seasonal allergies TIA (transient ischemic attack) Surgical History H/O vasectomy History of lumpectomy of left breast Hx of meniscectomy of right knee S/P tonsillectomy and adenoidectomy Family & Social History Family History (Updated 09/16/22 @ 12:27 by Washington Gordon MD) Father Cancer Social History: household members spouse Tobacco & Substance use: Smoking Status Former smoker alcohol intake current alcohol intake frequency 3 or more drinks per day Substance Use Type marijuana Meds Home Medications and Allergies Home Medications Medication Instructions Recorded Confirmed Type amlodipine 10 mg tablet 10 mg PO DAILY 06/29/18 09/16/22 History celecoxib 200 mg capsule (Celebrex) 200 mg PO DAILY 06/29/18 09/16/22 History lovastatin 20 mg tablet 20 mg PO QPM 06/29/18 09/16/22 History aspirin 81 mg tablet,delayed 81 mg PO BID #0 tabs 07/16/18 09/16/22 Rx release pantoprazole 20 mg tablet,delayed 20 mg PO DAILY 06/13/20 09/16/22 History release sodium,potassium,mag sulfates 17.5 See Rx Instructions PO .COMPLEX 09/03/22 Rx gram-3.13 gram-1.6 gram oral soln #354 mL (Suprep Bowel Prep Kit) Allergies Allergy/AdvReac Type Severity Reaction Status Date / Time No Known Drug Allergies Allergy Verified 08/02/20 17:04 Exam Vital Signs (past 8 hours): - 09/16/22 12:02 Temperature 97.6 F Pulse Rate 70 Respiratory Rate 16 Blood Pressure 156/92 H Pulse Oximetry 98 Oxygen Delivery Method Room Air Oxygen Delivery Method Room Air Narrative Exam Narrative: General adult male alert oriented no acute distress Abdomen soft nontender nondistended Assessment & Plan Assessment and plan (1) Family history of colon cancer: Status: Acute Assessment & Plan narrative: The patient requires colorectal screening and colonoscopy is recommended. Technical details were discussed. Risks, benefits, alternatives explained. Risks including but not limited to myocardial infarction, aspiration, bleeding, pain, missed lesion, incomplete examination, need for further radiographic studies, colonic perforation, and need for major abdominal surgery were discussed. All questions were answered to their satisfaction, and they are in agreement with this plan. Time Spent With Patient Critical Care time: I spent a total of [] minutes of critical care time on this patient's care today; this time is exclusive of procedural time.
--- NOTE | 2022-09-16 12:29 | PM.OP.COLON ---
Operative Date/Time/Diagnoses Date of procedure: 09/16/22 Time of procedure: 12:29 Pre-op diagnosis: Family history of colon cancer Post-op diagnosis: same Procedure & Clinicians Study performed: Colonoscopy Same procedure as scheduled: Yes Indications: Family history of colon cancer Surgeon: Washington Gordon Procedure Notes Procedure in detail: The history and physical was performed/updated and the patient is ASA class is 2. The procedure was discussed in detail with the patient. Potential risks complications including infection, bleeding, missed diagnosis, perforation, need for surgery, and were explained. Their questions were answered and informed consent was obtained. Patient was brought to the procedure room and placed standard monitoring equipment. The patient's vital signs were monitored continuously throughout the entire procedure. Prior to starting time-out was performed. The patient was placed in the left lateral recumbent position. Procedural sedation was administered by anesthesia. Examination began with a thorough inspection of the perianal area there was no evidence of fissures, fistulae, external hemorrhoids or cutaneous malignancy. The colonoscopy scope was then placed into the anal canal and was advanced to the cecum, which was identified by the ileocecal valve, the appendiceal orifice and the confluence of the taenia. The scope was then slowly withdrawn examining colon thoroughly in all directions, irrigating it of any residual stool. FINDINGS 1. Transverse colon-5 mm polyp removed with biopsy forceps 2. Ascending colon-3 mm polyp removed with biopsy forceps 3. Sigmoid moderate diverticulosis 4. Internal hemorrhoids The patient tolerated the procedure well. They will be discharged once criteria are met. The prep was of good/excellent quality. The withdrawl time was 6 minutes. Specimen(s): other (Transverse and ascending colonic polyps) Complications: none Impression: Colonic polyps Post-procedure Recommendations: High fiber diet Plan for aftercare: Follow-up depending on pathology findings Disposition: same day surgery
--- NOTE | 2022-09-16 13:40 | SUR.OPER ---
GLASSES TO PACU WITH PATIENT IN LABELED CASE
[2022-09-16 13:50] VITALS: BP 92/61; PULSE 67; RESP 14; TEMP 37.1; O2SAT 91
[2022-09-16 13:55] VITALS: BP 97/60; PULSE 65; RESP 13; O2SAT 93
[2022-09-16 14:00] VITALS: BP 92/60; PULSE 65; RESP 19; O2SAT 95
[2022-09-16 14:05] VITALS: BP 121/73; PULSE 59; RESP 16; O2SAT 95
[2022-09-16 14:10] VITALS: BP 123/73; PULSE 55; RESP 18; TEMP 36.8; O2SAT 96
== END 2022-09-16 14:27 | disposition home or self-care (01) ==
PROVIDERS: PCP Family Medicine; Referring Provider Surgery; Visit Provider Surgery
PROC: 0DJD8ZZ Inspection of Lower Intestinal Tract, Via Natural or Artificial Opening Endoscopic (ICD-10-PCS; CPT 45378; principal; 2022-09-16 12:45)
DX: Z12.11 Encounter for screening for malignant neoplasm of colon (principal); Z80.0 Family history of malignant neoplasm of digestive organs; K57.30 Diverticulosis of large intestine without perforation or abscess without bleeding; K64.8 Other hemorrhoids; K63.5 Polyp of colon
CPT/HCPCS: 45380; J2704; J3010

== ENCOUNTER → 2023-07-21 16:28 | Outpatient (CLI) | payer MEDICARE, OTHER, SELFPAY ==
[2020-05-18 14:03] VITALS: BMI 28.6
--- NOTE | 2023-07-21 | DI.RAD.S_ITS ---
PROCEDURE: XR WRIST LT MIN 3V INDICATIONS: FALL, LIGAMENT TEAR TECHNIQUE: 4 views of the wrist were acquired. COMPARISON: None. FINDINGS: Bones: No fractures or dislocations. No suspicious bony lesions. Mild intercarpal degenerative changes Soft tissues: No suspicious soft tissue calcifications. IMPRESSION: Mild degenerative arthritic changes without fracture Approved by: Juanjo Brizuela M.D. on 07/21/2023 at 19:38
--- NOTE | 2023-07-21 | DI.RAD.S_ITS ---
PROCEDURE: XR FOREARM LT 2V INDICATIONS: FALL, LIGAMENT TEAR TECHNIQUE: 2 views of the forearm were acquired. COMPARISON: None. FINDINGS: Bones: No fractures or dislocations. No suspicious bony lesions. Soft tissues: No suspicious soft tissue calcifications or masses. IMPRESSION: Unremarkable left forearm radiographs Approved by: Juanjo Brizuela M.D. on 07/21/2023 at 19:35
--- NOTE | 2023-07-21 | DI.RAD.S_ITS ---
PROCEDURE: XR ELBOW LT 2V INDICATIONS: FALL , LIGAMENT TEAR TECHNIQUE: 2 views of the elbow were acquired. COMPARISON: None. FINDINGS: Bones: No fractures or dislocations. No suspicious bony lesions. Degenerative arthritic changes Soft tissues: No elbow joint effusion. No suspicious soft tissue calcifications. IMPRESSION: Degenerative arthritic changes without fracture or joint effusion Approved by: Juanjo Brizuela M.D. on 07/21/2023 at 19:34
== END ==
PROVIDERS: PCP Family Medicine; Referring Provider Registered Nurse; Visit Provider Registered Nurse
DX: T14.8XXA Other injury of unspecified body region, initial encounter (principal); W18.30XA Fall on same level, unspecified, initial encounter
CPT/HCPCS: 73070; 73090; 73110

== ENCOUNTER → 2024-12-26 10:51 | Outpatient (CLI) | payer MEDICARE, OTHER, SELFPAY ==
[2020-05-18 14:03] VITALS: BMI 28.6
--- NOTE | 2024-12-26 10:54 | DI.RAD.S_ITS ---
PROCEDURE: XR DEXA AXIAL SKELETON INDICATIONS: BONE DENSITY DISORDER COMPARISON: None. FINDINGS: Lumbar Spine: Bone mineral density 1.02 g/cm2, T score -0.3, (L1, L3, L4). Left Femoral Neck: Bone mineral density 0.81 g/cm2, T score -0.4. Left Hip: Bone mineral density 1.02 g/cm2, T score 0.6,. Fracture Risk Calculation (when applicable): Not applicable (T score greater or equal to -1.0 to: NORMAL) (T score from -1.1 to -2.4: OSTEOPENIA) (T score less than or equal to -2.5: OSTEOPOROSIS) IMPRESSION: Bone mineral density within normal limits. Follow-up guidelines as follows: Osteoporosis: Consider a repeat DEXA and Vertebral Fracture Assessment (VFA) exam in 2 years or sooner if medically necessary, to reassess this patient's status. Osteopenia: Consider a repeat DEXA in 2-3 years to reassess this patient's status, or if there is a new clinical indication. Normal: Consider a repeat DEXA in 5 years or sooner, or if there is a new clinical indication. All treatment decisions require clinical judgment and consideration of individual patient factors, including patient preferences, comorbidities, previous drug use, risk factors not captured in the FRAX model (e.g., frailty, falls, vitamin D deficiency, increased bone turnover, interval significant decline in bone density ) and possible under- or over-estimation of fracture risk by FRAX. In addition, the NOF Guide recommends that FDA-approved medical therapies be considered in postmenopausal women and men age >= 50 years with a: * Hip or vertebral (clinical or morphometric) fracture * T-score of <=-2.5 at the spine or hip * Ten-year fracture probability by FRAX of >= 3% for hip fracture or >=20% for major osteoporotic fracture. Dictated by: Joshua Ruvalcaba M.D. on 12/26/2024 at 17:12 Approved by: Joshua Ruvalcaba M.D. on 12/26/2024 at 17:13
== END ==
LOC: RAD 10:54
PROVIDERS: PCP Family Medicine; Referring Provider Family Medicine; Visit Provider Family Medicine
DX: M85.89 Other specified disorders of bone density and structure, multiple sites (principal)
CPT/HCPCS: 77080

== ENCOUNTER 2025-03-08 07:26 | Day surgery (SDC) | payer OTHER, SELFPAY ==
[2020-05-18 14:03] VITALS: BMI 28.6
--- NOTE | 2025-03-08 | PATH_ITS ---
[facility] Accession Number: [id number] No. of containers..03 Tissue . 01 Material submitted: . PART A: esophagus - ESOPHAGUS, 34 CM PART B: esophagus - ESOPHAGUS, 32 CM PART C: esophagus - ESOPHAGUS, 30 CM . 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 No dysplasia identified. . Part B: ESOPHAGUS, 32 CM: Squamocolumnar junctional mucosa with goblet cell (Morrison's) metaplasia. No dysplasia identified. . 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 No dysplasia identified. [facility] 03/10/20251420 Local . 01 Electronically signed: . Al Mcdermott MD, Pathologist NPI- [id number] . 01 Gross description: . Part A: ESOPHAGUS, 34 CM: Received in formalin are 3 fragment(s) of dash, soft tissue measuring 0.1 x 0.1 x 0.1 cm to 0.3 x 0.2 x 0.2 cm submitted entirely in 1 cassette(s) . Part B: ESOPHAGUS, 32 CM: Received in formalin are 4 fragment(s) of dash, soft tissue measuring 0.1 x 0.1 x 0.1 cm to 0.3 x 0.2 x 0.2 cm submitted entirely in 1 cassette(s) . Part C: ESOPHAGUS, 30 CM: Received in formalin are 2 fragment(s) of dash, soft tissue measuring 0.2 x 0.2 x 0.2 cm to 0.3 x 0.3 x 0.2 cm submitted entirely in 1 cassette(s) /DEBO 03/10/2025 1421 Local . 01 Pathologist provided ICD-10: K22.70 . 01 CPT . 244189, 886096, 907098 Specimen Comment: A courtesy copy of this report has been sent to [phone] Performed at: [address] [id number] MD Al Mcdermott MD Phone: [phone]
[2025-03-08] MEDS: LACTATED RINGERS 1,000 ML 42 ML IV (07:50)
[2025-03-08 08:01] VITALS: BP 142/84; PULSE 69; RESP 16; TEMP 36.1; O2SAT 97
--- NOTE | 2025-03-08 08:24 | PM.HP.IH.1 ---
History of Present Illness History of Present Illness Date Patient Seen: 03/08/25 Chief complaint: EGD Narrative: History of Barretts esophagus PFSH Medical History Morrison syndrome Hiatal hernia GERD (gastroesophageal reflux disease) Aspiration pneumonia [place] (hard of hearing) TIA (transient ischemic attack) Osteoarthritis Hypercholesterolemia HTN (hypertension) Seasonal allergies Melanoma Surgical History S/P tonsillectomy and adenoidectomy H/O vasectomy History of lumpectomy of left breast Hx of meniscectomy of right knee Family History Father Cancer Social History marital status: household members: spouse lives independently: Yes occupational status: previously employed Smoking Status: Former smoker alcohol intake: current Meds Home Medications and Allergies Home Medications Medication Instructions Recorded Confirmed Type amlodipine 10 mg tablet 10 mg PO DAILY 06/29/18 03/08/25 History celecoxib 200 mg capsule (Celebrex) 200 mg PO DAILY 06/29/18 03/08/25 History aspirin 81 mg tablet,delayed 81 mg PO BID #0 tabs 07/16/18 03/08/25 Rx release pantoprazole 20 mg tablet,delayed 20 mg PO DAILY 06/13/20 03/08/25 History release coenzyme Q10 [Co Q-10] PO DAILY 01/26/25 01/26/25 History losartan 25 mg tablet 25 mg PO DAILY 01/26/25 03/08/25 History rosuvastatin 10 mg tablet 10 mg PO DAILY 01/26/25 03/08/25 History Allergies Allergy/AdvReac Type Severity Reaction Status Date / Time No Known Drug Allergies Allergy Verified 03/08/25 07:50 Exam Vital Signs (past 8 hours): - 03/08/25 08:01 Temperature 96.9 F L Pulse Rate 69 Respiratory Rate 16 Blood Pressure 142/84 H Pulse Oximetry 97 Oxygen Delivery Method Room Air Oxygen Delivery Method Room Air Narrative Exam Narrative: Oropharynx free of lesions Chest clear to auscultation percussion Cardiac exam reveals no S3 or murmur Assessment & Plan Assessment & Plan narrative: History of Barretts esophagus need for follow-up EGD with biopsy. Risks, benefits, alternatives have been explained. Time-Based Coding :: [TOTAL MINUTES] spent with patient and on the chart (including review of chart, obtaining history, exam, reviewing outside data, placing orders, documenting exam and treatment plan, and counseling patient) on [DATE]. PROFEE Medical Certification Specialist Document charge(s): No
--- NOTE | 2025-03-08 08:26 | P.OP.EGD_ITS ---
Operative Date/Time/Diagnoses Date of procedure: 03/08/25 Time of procedure: 08:41 Pre-op diagnosis: See indication and findings Post-op diagnosis: same Procedure & Clinicians Study performed: EGD with biopsy Same procedure as scheduled: Yes Indications: History of Barretts esophagus Surgeon: Naila Martin Procedure Notes Procedure in detail: After informed consent was obtained the patient was placed in left lateral decubitus position. The video upper scope was placed into the oropharynx and with the patient's help swallowed into the esophagus. The esophagus stomach and duodenal were carefully examined. On withdrawal, retroflexed view the GE junction was performed. The scope was removed. The patient tolerated procedure well. Blood loss none Complications none Sedation mac Findings 1. Barretts esophagus seen in the distal esophagus. [place] classification C4 M2. Three bottles of biopsies were taken in 4 quadrants. These were labeled 34, 32, and 30. 2. 4 cm hiatal hernia 3. Normal stomach 4. Normal duodenal bulb sweep Will be in touch regarding biopsies. Should have follow-up EGD with biopsy in 3 years
[2025-03-08 08:42] VITALS: BP 94/62; PULSE 59; RESP 18; TEMP 36.2; O2SAT 92
[2025-03-08 08:47] VITALS: BP 109/69; PULSE 74; RESP 13; O2SAT 95
[2025-03-08 08:52] VITALS: BP 130/94; PULSE 68; RESP 16; TEMP 36.2; O2SAT 94
[2025-03-08 09:03] VITALS: BP 128/83; PULSE 66; RESP 16; TEMP 36.3; O2SAT 95
== END 2025-03-08 09:09 | disposition home or self-care (01) ==
PROVIDERS: PCP Family Medicine; Referring Provider Internal Medicine Gastroenterology; Visit Provider Internal Medicine Gastroenterology
PROC: 0DJ08ZZ Inspection of Upper Intestinal Tract, Via Natural or Artificial Opening Endoscopic (ICD-10-PCS; CPT 43239; principal; 2025-03-08 08:30)
DX: K22.70 Barrett's esophagus without dysplasia (principal); K44.9 Diaphragmatic hernia without obstruction or gangrene
CPT/HCPCS: 43239; J2704; J3010